=== PATIENT | female | born 2000 | race Caucasian/White ===

== ENCOUNTER 2025-04-25 15:24 | Emergency (ER) | payer OTHER ==
[~2025-04-25] VITALS: Ht 165.1 cm; Wt 82.2 kg
[2025-04-25 15:30] VITALS: TEMP 97.5
[2025-04-25] MEDS: FAMOTIDINE 20 MG/2 ML VIAL IV STA (16:11)
[2025-04-25] MEDS: MAGNESIUM/ALUMINUM/SIMETHICONE 30 ML UDC PO ONE (16:44)
[2025-04-25] MEDS ORDERED: PEPCID20 MG PO (16:48)
[2025-04-25 17:18] VITALS: PULSE 74; RESP 16; O2SAT 97
== END 2025-04-25 17:24 | disposition home or self-care (01) ==
LOC: FSED 15:34
DX: R07.89 Other chest pain (principal); R14.2 Eructation; L65.9 Nonscarring hair loss, unspecified
CPT/HCPCS: 71046; 80053; 80307; 81003; 81025; 84484; 85025; 85379; 93005; 96374; 99284; J1308

== ENCOUNTER 2025-07-10 18:44 | Emergency (ER) | payer OTHER ==
[~2025-07-10] VITALS: Ht 165.1 cm; Wt 85.3 kg
[~2025-07-10 18:44] MED LIST: PEPCID20 MG PO
[2025-07-10 19:02] VITALS: PULSE 76; RESP 18; TEMP 98.8
[2025-07-10 21:44] VITALS: BP 128/78; PULSE 74; RESP 18; TEMP 98.6; O2SAT 100
== END 2025-07-10 21:44 | disposition home or self-care (01) ==
LOC: FSED 19:01
DX: O03.9 Complete or unspecified spontaneous abortion without complication (principal)
CPT/HCPCS: 36415; 76801; 76830; 80053; 81003; 81025; 84702; 85025; 86900; 99283